=== PATIENT | male | born 1945 | race Caucasian/White ===

== ENCOUNTER 2017-11-28 15:03 | Inpatient (IN) | payer MEDICARE, SELFPAY ==
[~2017-11-28] VITALS: Ht 172.7 cm; Wt 82.1 kg
[2017-11-28] MEDS ORDERED: methylPREDNISolone SOD SUCC 125 MG/2 ML IVP ONE (15:30)
[2017-11-28] MEDS ORDERED: SODIUM CHLORIDE FLUSH 10ML SYR IVF ONE (15:30)
[2017-11-28] MEDS ORDERED: ALBUTEROL/IPRATROPIUM 2.5MG/0.5MG, 3 ML ONE (15:31)
[2017-11-28] MEDS ORDERED: methylPREDNISolone SOD SUCC 125 MG/2 ML ONE (15:39)
[2017-11-28 15:43] LABS: INTERNATIONAL NORMALIZED RATIO 1.06 (0.93-1.1); PROTHROMBIN TIME 10.9 Seconds (9.6-11.5)
[2017-11-28 15:47] LABS: ALANINE AMINOTRANSFERASE 18 U/L (12-78); ALBUMIN 3.5 g/dL (3.4-5.0); ANION GAP 4 mmol/L (5-15); CHLORIDE 96 mmol/L (98-107); CREATININE 1.37 mg/dL (0.7-1.3)
[2017-11-28 15:52] LABS: ALKALINE PHOSPHATASE 70 U/L (45-117); BILIRUBIN,TOTAL 0.7 mg/dL (0.2-1.0); TOTAL PROTEIN 6.9 g/dL (6.4-8.2); TROPONIN I < 0.015 ng/mL (0.000-0.045)
[2017-11-28 15:58] LABS: BASOPHILS # (AUTO) 0.07 x10^3/uL (0-0.1); BASOPHILS % (AUTO) 0 % (0-1); EOSINOPHILS # (AUTO) 0.06 x10^3/uL (0-0.4); EOSINOPHILS % (AUTO) 0 % (1-7); LYMPHOCYTES # (AUTO) 0.88 x10^3/uL (1-3.4); LYMPHOCYTES % (AUTO) 5 % (22-44); MD SCAN; MEAN CORPUSCULAR HEMOGLOBIN 25.7 pg (27.5-34.5); MEAN CORPUSCULAR HGB CONC 30.7 g/dL (33.2-36.2); MEAN CORPUSCULAR VOLUME 83.9 fL (81-97); MEAN PLATELET VOLUME 9.6 fL (7.4-10.4); MONOCYTES # (AUTO) 0.85 x10^3/uL (0.2-0.8); MONOCYTES % (AUTO) 5 % (2-9); NEUTROPHILS # (AUTO) 16.22 x10^3/uL (1.8-6.8); NEUTROPHILS % (AUTO) 90 % (42-75); PLATELET COUNT 203 x10^3/uL (130-400); RED BLOOD COUNT 4.62 x10^6/uL (4.38-5.82); RED CELL DISTRIBUTION WIDTH 17.8 % (9.4-14.8)
[2017-11-28] MEDS ORDERED: CEFTRIAXONE PMX 1GM/50ML 50 ML IVPB ONE (16:30)
[2017-11-28] MEDS ORDERED: CEFTRIAXONE PMX 1GM/50ML 50 ML ONE (16:52)
[2017-11-28] MEDS ORDERED: SODIUM CHLORIDE 0.9% 1,000 ML IV SCH (17:27)
[2017-11-28] MEDS ORDERED: PANT40TA5 PO (17:29)
[2017-11-28] MEDS ORDERED: LOSA100T6 PO (17:29)
[2017-11-28] MEDS ORDERED: ASPI-515 PO (17:29)
[2017-11-28] MEDS ORDERED: BUDE10.2 IH (17:29)
[2017-11-28] MEDS ORDERED: ATOR40TA PO (17:29)
[2017-11-28] MEDS ORDERED: HYDR25TA6 PO (17:29)
[2017-11-28] MEDS ORDERED: POTA20TA6 PO (17:29)
[2017-11-28] MEDS ORDERED: TIOT18CA INH (17:29)
[2017-11-28] MEDS ORDERED: PRED20TA PO (17:29)
[2017-11-28] MEDS ORDERED: AMLO10TA2 PO (17:29)
[2017-11-28] MEDS ORDERED: MORP30CP12 PO (17:29)
[2017-11-28] MEDS ORDERED: METF500T PO (17:29)
[2017-11-28] MEDS ORDERED: FURO20TA3 PO (17:29)
[2017-11-28] MEDS ORDERED: NICO-486 TD (17:29)
[2017-11-28] MEDS ORDERED: GABA300C10 PO (17:29)
[2017-11-28] MEDS ORDERED: CYAN250013 PO (17:29)
[2017-11-28] MEDS ORDERED: CLOP75TA PO (17:29)
[2017-11-28] MEDS ORDERED: TRAZ100T15 PO (17:29)
[2017-11-28] MEDS ORDERED: ONDANSETRON 2MG/ML, 2ML IVPush PRN (17:30)
[2017-11-28] MEDS ORDERED: ACETAMINOPHEN 325 MG TABLET PO PRN (17:30)
[2017-11-28] MEDS ORDERED: POLYETHYLENE GLYCOL 17 GM PACKET PO PRN (17:30)
[2017-11-28] MEDS: HEPARIN 5,000 UNITS/ML, 1ML SQ SCH (17:30)
[2017-11-28] MEDS ORDERED: BISACODYL 10 MG SUPP PR PRN (17:30)
[2017-11-28] MEDS: CARVEDILOL 3.125 MG TABLET PO SCH (18:00)
[2017-11-28] MEDS ORDERED: FUROSEMIDE 20 MG/2 ML IV ONE (18:00)
[2017-11-28] MEDS ORDERED: ALBUTEROL/IPRATROPIUM 2.5MG/0.5MG, 3 ML NPPB PRN (18:00)
[2017-11-28 18:02] VITALS: BP 111/62
[2017-11-28 18:08] VITALS: BP 111/62
[2017-11-28 18:22] LABS: HEMOGLOBIN A1C 6.4 % (4.2-6.3)
[2017-11-28] MEDS: ALBUTEROL/IPRATROPIUM 2.5MG/0.5MG, 3 ML NPPB SCH (20:30)
[2017-11-28] MEDS: INSULIN LISPRO 100 UNITS/ML, PEN SQ-INSULIN SCH (21:00)
[2017-11-28 22:16] VITALS: BP 96/56
[2017-11-29 00:41] VITALS: BP 99/59
[2017-11-29] MEDS: HEPARIN 5,000 UNITS/ML, 1ML SQ SCH ×3 (01:49→17:06)
[2017-11-29 05:03] VITALS: BP 118/74
[2017-11-29] MEDS: CARVEDILOL 3.125 MG TABLET PO SCH (05:08)
[2017-11-29 05:24] LABS: BASOPHILS # (AUTO) 0.02 x10^3/uL (0-0.1); BASOPHILS % (AUTO) 0 % (0-1); EOSINOPHILS % (AUTO) 0 % (1-7); LYMPHOCYTES # (AUTO) 0.62 x10^3/uL (1-3.4); LYMPHOCYTES % (AUTO) 5 % (22-44); MD NO; MEAN CORPUSCULAR HGB CONC 31.5 g/dL (33.2-36.2); MEAN CORPUSCULAR VOLUME 82.6 fL (81-97); MEAN PLATELET VOLUME 9.8 fL (7.4-10.4); MONOCYTES # (AUTO) 0.34 x10^3/uL (0.2-0.8); MONOCYTES % (AUTO) 3 % (2-9); NEUTROPHILS # (AUTO) 12.29 x10^3/uL (1.8-6.8); NEUTROPHILS % (AUTO) 93 % (42-75); PLATELET COUNT 175 x10^3/uL (130-400); RED BLOOD COUNT 4.11 x10^6/uL (4.38-5.82); RED CELL DISTRIBUTION WIDTH 17.4 % (9.4-14.8)
[2017-11-29 05:26] LABS: ANION GAP 5 mmol/L (5-15); CALCIUM 9.3 mg/dL (8.5-10.1); CHLORIDE 96 mmol/L (98-107)
[2017-11-29] MEDS: INSULIN LISPRO 100 UNITS/ML, PEN SQ-INSULIN SCH ×4 (07:00→21:07)
[2017-11-29 07:30] VITALS: BP 115/68
[2017-11-29] MEDS: ALBUTEROL/IPRATROPIUM 2.5MG/0.5MG, 3 ML NPPB SCH ×4 (08:01→20:00)
[2017-11-29 12:05] VITALS: BP 124/74
[2017-11-29] MEDS: CEFTRIAXONE PMX 2GM/50ML 50 ML IV SCH (17:05)
[2017-11-29] MEDS: CARVEDILOL 6.25 MG TABLET PO SCH (17:06)
[2017-11-29 20:00] VITALS: BP 113/69
[2017-11-30 00:37] LABS: CULTURE INDICATED? YES; MICROSCOPIC INDICATED
[2017-11-30] MEDS: HEPARIN 5,000 UNITS/ML, 1ML SQ SCH ×3 (01:06→17:30)
[2017-11-30 02:00] VITALS: BP 112/69
[2017-11-30 05:58] LABS: BASOPHILS # (AUTO) 0.02 x10^3/uL (0-0.1); BASOPHILS % (AUTO) 0 % (0-1); EOSINOPHILS # (AUTO) 0.08 x10^3/uL (0-0.4); EOSINOPHILS % (AUTO) 1 % (1-7); LYMPHOCYTES # (AUTO) 1.68 x10^3/uL (1-3.4); LYMPHOCYTES % (AUTO) 11 % (22-44); MD NO; MEAN CORPUSCULAR HEMOGLOBIN 25.6 pg (27.5-34.5); MEAN CORPUSCULAR HGB CONC 31.2 g/dL (33.2-36.2); MEAN CORPUSCULAR VOLUME 82.1 fL (81-97); MEAN PLATELET VOLUME 9.9 fL (7.4-10.4); MONOCYTES # (AUTO) 0.88 x10^3/uL (0.2-0.8); MONOCYTES % (AUTO) 6 % (2-9); NEUTROPHILS # (AUTO) 12.65 x10^3/uL (1.8-6.8); NEUTROPHILS % (AUTO) 83 % (42-75); PLATELET COUNT 184 x10^3/uL (130-400); RED BLOOD COUNT 4.23 x10^6/uL (4.38-5.82); RED CELL DISTRIBUTION WIDTH 16.9 % (9.4-14.8)
[2017-11-30 06:00] VITALS: BP 135/68
[2017-11-30] MEDS: CARVEDILOL 6.25 MG TABLET PO SCH ×2 (06:02→17:20)
[2017-11-30] MEDS: ALBUTEROL/IPRATROPIUM 2.5MG/0.5MG, 3 ML NPPB SCH (07:00)
[2017-11-30 07:45] VITALS: BP 111/73
[2017-11-30] MEDS: INSULIN LISPRO 100 UNITS/ML, PEN SQ-INSULIN SCH ×2 (11:00→16:00)
[2017-11-30] MEDS ORDERED: CARV6.2512 PO (13:27)
[2017-11-30] MEDS ORDERED: INSU100I11 SQ-INSULIN (13:27)
[2017-11-30] MEDS ORDERED: AMOX-291 PO (13:50)
[2017-11-30] MEDS ORDERED: DOXY100C15 PO (13:51)
[2017-11-30 14:30] VITALS: BP 132/85
[2017-11-30] MEDS: CEFTRIAXONE PMX 2GM/50ML 50 ML IV SCH (17:32)
[2017-11-30] MEDS ORDERED: TRAZODONE 50MG TABLET PO SCH (21:00)
== END 2017-12-01 01:28 | disposition home or self-care (01) | DRG 871 ==
LOC: ED 16:27 → EDIP 16:35 → 4WST 17:51
PROVIDERS: ADMIT Hospitalist; ATTEND Hospitalist
DX: A41.9 Sepsis, unspecified organism (principal); L89.323 Pressure ulcer of left buttock, stage 3; J96.21 Acute and chronic respiratory failure with hypoxia; I50.31 Acute diastolic (congestive) heart failure; J44.1 Chronic obstructive pulmonary disease with (acute) exacerbation; N17.9 Acute kidney failure, unspecified; I13.0 Hypertensive heart and chronic kidney disease with heart failure and stage 1 through stage 4 chronic kidney disease, or unspecified chronic kidney disease; R65.20 Severe sepsis without septic shock; I25.10 Atherosclerotic heart disease of native coronary artery without angina pectoris; N18.3 Chronic kidney disease, stage 3 (moderate); E11.22 Type 2 diabetes mellitus with diabetic chronic kidney disease; G47.00 Insomnia, unspecified; I48.91 Unspecified atrial fibrillation; Z88.8 Allergy status to other drugs, medicaments and biological substances; Z95.5 Presence of coronary angioplasty implant and graft
CPT/HCPCS: 36415; 36600; 71045; 80048; 80053; 81001; 82803; 82962; 83036; 83605; 83735; 83880; 84484; 85025; 85610; 87040; 87086; 93005; 93306; 94640; 94667; 96365; 96375; J0696; J1644; J7620; J1815; J1940; J2930; J7030